=== PATIENT | female | born 1935 | race Caucasian/White ===

== ENCOUNTER 2021-08-05 13:19 | Inpatient (IN) | payer OTHER, BC ==
[2021-08-05] MEDS ORDERED: SODIUM CHLORIDE 1,000 ML IV SCH (13:45)
[2021-08-05] MEDS ORDERED: ACETAMINOPHEN 1000 MG/100 ML BAG IVPB ONE (14:05)
[2021-08-05] MEDS ORDERED: ACETAMINOPHEN INJECTION 100 ML IVPB ONE (14:44)
[2021-08-05 15:04] LABS: HEMATOCRIT 48.2 % (32.4-45.2); HEMOGLOBIN 15.3 GM/dL (10.7-15.3); MCH 25.4 pg (25.7-33.7); MCHC 31.8 g/dl (32.0-36.0); MEAN PLT VOLUME 8.7 fl (7.5-11.1); PLATELET COUNT 227 10^3/uL (134-434); RBC 6.03 M/mm3 (3.60-5.2); RDW 15.4 % (11.6-15.6); WHITE BLOOD COUNT 13.7 K/mm3 (4.0-10.0)
[2021-08-05 15:08] LABS: VENOUS BASE EXCESS -1.2 mmol/L (-2-2); VENOUS O2 SATURATION 77.3 % (70-80); VENOUS PCO2 38.1 mmHg (38-52); VENOUS PH 7.401 (7.310-7.410)
[2021-08-05 15:11] LABS: INR 1.19 (0.83-1.09)
[2021-08-05] MEDS ORDERED: PIPERACILLIN/TAZOB 4.5 GM 4.5 GM in DEXTROSE 5%-WATER 100 ML IVPB ONE (15:29)
[2021-08-05] MEDS ORDERED: VANCOMYCIN 1 GM in D5W (PRE-DOCKED) 1,000 MG/250 ML IVPB ONE (15:29)
[2021-08-05 15:32] LABS: CALCIUM 8.9 mg/dL (8.5-10.1)
[2021-08-05 15:33] LABS: ALBUMIN 3.1 g/dl (3.4-5.0); BLOOD UREA NITROGEN 23.3 mg/dL (7-18)
[2021-08-05 15:34] LABS: ANISOCYTOSIS 0; HELMET CELLS 0; HOWELL-JOLLY BODIES 0; MACROCYTOSIS 0; OVALOCYTE 0; PLATELET ESTIMATE NORMAL; ROULEAU 0; SICKELED CELLS 0; TARGET CELLS 0; TEAR DROP CELLS 0; TOXIC GRANULATION 0
[2021-08-05 15:36] LABS: CREATININE 0.8 mg/dL (0.55-1.3)
[2021-08-05 15:37] LABS: BILIRUBIN,TOTAL 5.7 mg/dL (0.2-1); TOT PROT 6.8 g/dl (6.4-8.2)
[2021-08-05 15:39] LABS: LACTIC ACID 3.8 mmol/L (0.4-2.0)
[2021-08-05] MEDS ORDERED: PIPERACILLIN/TAZOB 4.5 GM 4.5 GM/100 ML BAG IVPB ONE (15:48)
[2021-08-05] MEDS ORDERED: VANCOMYCIN 1 GRAM (PRE-DOCKED) 1,000 MG/250 ML BAG IVPB ONE (15:48)
[2021-08-05 16:06] LABS: EPI CELLS 10 /uL (0-25.1); HYALINE CASTS 3 /uL (0-3.1); PH,URINE 5.5 (5.0-8.0); URINE APPEARANCE CLEAR; URINE BACTERIA 4 /uL (0-1359); URINE BILIRUBIN 2+ (NEGATIVE); URINE COLOR DK YELLOW; URINE GLUCOSE (UA) NEGATIVE (NEGATIVE); URINE KETONE NEGATIVE (NEGATIVE); URINE LEUK ESTERASE TRACE (NEGATIVE); URINE NITRITE NEGATIVE (NEGATIVE); URINE PROTEIN 1+ (NEGATIVE); URINE RBC 38 /uL (0-23.9); URINE WBC 17 /uL (0-25.8)
[2021-08-05] MEDS ORDERED: SODIUM CHLORIDE 0.9% 500 ML INFUS.BAG IV ONE (16:58)
[2021-08-05 19:56] LABS: LACTIC ACID 5.3 mmol/L (0.4-2.0)
[2021-08-05 23:11] VITALS: BMI 27.7
[2021-08-06] MEDS ORDERED: BISACODYL 10 MG SUPP.RECT RC PRN (00:12)
[2021-08-06] MEDS ORDERED: PIPERACILLIN/TAZOB 4.5 GM 4.5 GM in DEXTROSE 5%-WATER 100 ML IVPB ONE (00:21)
[2021-08-06] MEDS: SODIUM CHLORIDE 1,000 ML IV SCH ×2 (00:22→08:47)
[2021-08-06] MEDS ORDERED: PIPERACILLIN/TAZOBACTAM 4.5 GM VIAL IVPB ONE (01:11)
[2021-08-06] MEDS ORDERED: DEXTROSE 5%-WATER 100 ML IVPB ONE (01:11)
[2021-08-06] MEDS ORDERED: PIPERACILLIN/TAZOBACTAM 3.375 GM VIAL IVPB ONE ×2 (09:09→17:18)
[2021-08-06] MEDS ORDERED: DEXTROSE 5%-WATER - 50 ML IVPB ONE ×2 (09:10→17:18)
[2021-08-06] MEDS ORDERED: ASPIRIN COATED 81 MG TABLET.EC PO SCH (10:00)
[2021-08-06] MEDS ORDERED: DOCUSATE SODIUM 100 MG CAPSULE (FP) PO SCH (10:00)
[2021-08-06] MEDS ORDERED: PIPERACILLIN/TAZOB 3.375 GM 3.375 GM in DEXTROSE 5%-WATER - 50 ML IVPB SCH ×2 (10:00→18:00)
[2021-08-06 14:38] LABS: BASO % 0.2 % (0-2.0); EOS % 0.2 % (0-4.5); HEMATOCRIT 38.4 % (32.4-45.2); HEMOGLOBIN 12.1 GM/dL (10.7-15.3); MCH 25.2 pg (25.7-33.7); MCHC 31.4 g/dl (32.0-36.0); MEAN CELL VOLUME 80.2 fl (80-96); MEAN PLT VOLUME 8.6 fl (7.5-11.1); MONO % 5.7 % (3.8-10.2); NEUT % 86.9 % (42.8-82.8); PLATELET COUNT 193 10^3/uL (134-434); RBC 4.79 M/mm3 (3.60-5.2); RDW 15.5 % (11.6-15.6); WHITE BLOOD COUNT 16.3 K/mm3 (4.0-10.0)
[2021-08-06 14:55] LABS: CHLORIDE 110 mmol/L (98-107); SODIUM 144 mmol/L (136-145)
[2021-08-06 15:00] LABS: ALBUMIN 2.6 g/dl (3.4-5.0); ANION GAP 11 MMOL/L (8-16); CALCIUM 7.8 mg/dL (8.5-10.1); CO2 23 mmol/L (21-32); GLUCOSE,RANDOM 65 mg/dL (74-106)
[2021-08-06] MEDS ORDERED: SILVER SULFADIAZINE 1% TOP CREAM 50 GM JAR TP SCH (15:00)
[2021-08-06 15:01] LABS: LACTIC ACID 3.4 mmol/L (0.4-2.0)
[2021-08-06 15:03] LABS: BILIRUBIN,DIRECT 0.9 mg/dL (0.0-0.2); CREATININE 0.6 mg/dL (0.55-1.3); SGOT/AST 184 U/L (15-37); SGPT/ALT 648 U/L (13-61)
[2021-08-06 15:05] LABS: BILIRUBIN,TOTAL 1.4 mg/dL (0.2-1)
[2021-08-06 15:10] LABS: ALK PHOS 182 U/L (45-117)
[2021-08-06 19:03] VITALS: PULSE 66
[2021-08-06 21:49] VITALS: BP 147/73; TEMP 98.2
[2021-08-06] MEDS ORDERED: HEPARIN NA (PORCINE) 5,000 UNITS/ML 1ML VIAL SQ SCH (22:00)
== END 2021-08-06 23:50 | disposition short-term general hospital (02) | DRG 872 ==
LOC: JER 13:19 → JERBED 15:30 → J4S 20:47
PROVIDERS: ADMIT Specialist; ATTEND Specialist
PROC: 0F9430Z Drainage of Gallbladder with Drainage Device, Percutaneous Approach (ICD-10-PCS; principal; 2021-08-06)
PROC: BF03YZZ Plain Radiography of Gallbladder and Bile Ducts using Other Contrast (ICD-10-PCS; 2021-08-06)
DX: A41.89 Other specified sepsis (principal); K80.30 Calculus of bile duct with cholangitis, unspecified, without obstruction; I69.354 Hemiplegia and hemiparesis following cerebral infarction affecting left non-dominant side; E87.2 Acidosis; J44.9 Chronic obstructive pulmonary disease, unspecified; I10 Essential (primary) hypertension; F32.9 Major depressive disorder, single episode, unspecified; R41.82 Altered mental status, unspecified; I48.91 Unspecified atrial fibrillation; D64.9 Anemia, unspecified; G35 Multiple sclerosis; R77.8 Other specified abnormalities of plasma proteins; R79.89 Other specified abnormal findings of blood chemistry; I25.10 Atherosclerotic heart disease of native coronary artery without angina pectoris; D72.829 Elevated white blood cell count, unspecified; R50.9 Fever, unspecified; R11.10 Vomiting, unspecified; Z95.5 Presence of coronary angioplasty implant and graft
CPT/HCPCS: 36415; 47490; 70450-TC; 70496-TC; 70498-TC; 71045-TC-FY; 74177-TC; 76705-TC; 80053; 80061; 81003; 82248; 82550; 82803; 83036; 83605; 84484; 85025; 85610; 85730; 86850; 86900; 86901; 87040; 87070; 87075; 87086; 87102; 87116; 87186; 87205; 87206; 87210; 93005; 93010; 93306-TC; 99285-25; A4358; C1729; C1769; C9803-CS; J1644; Q9967; U0003; U0005